=== PATIENT | female | born 1960 | race Caucasian/White ===

== ENCOUNTER 2017-11-05 06:55 | Emergency (ER) | payer OTHER ==
[~2017-11-05] VITALS: Ht 157.5 cm; Wt 64.6 kg
[~2017-11-05 06:55] MED LIST: COM10T PO; GABA-530 PO; IBUP-812 PO; LEVO150T62 PO; VALA10002 PO; ZOF4T PO
[2017-11-05 06:59] VITALS: BP 116/64
[2017-11-05] MEDS ORDERED: ketorolac trometh inj. 60 MG/2 ML VIAL IM ONE (07:10)
[2017-11-05] MEDS ORDERED: ketorolac tromethamine 15mg/ml inj. IM ONE (07:10)
== END 2017-11-05 07:28 | disposition home or self-care (01) ==
LOC: ER 06:56
DX: M54.5 Low back pain (principal); E03.9 Hypothyroidism, unspecified; G89.29 Other chronic pain; Z91.030 Bee allergy status; Z88.5 Allergy status to narcotic agent; Z79.899 Other long term (current) drug therapy
CPT/HCPCS: 96372; 99283; J1885

== ENCOUNTER 2018-02-21 07:57 | Outpatient (CLI) | payer OTHER ==
[~2018-02-21 07:57] MED LIST changes: +CYCL-1 PO
[2018-02-21 08:23] LABS: BASOPHILS % (AUTO) 0.6 % (0-1); EOSINOPHILS # (AUTO) 0.2 X10'3 (0-0.9); EOSINOPHILS % (AUTO) 2.2 % (0-6); HEMATOCRIT 41.1 % (35.0-45.0); HEMOGLOBIN 14.2 g/dl (12.0-16.0); LYMPHOCYTES # (AUTO) 3.2 X10'3 (1.1-4.8); LYMPHOCYTES % (AUTO) 37.7 % (21-51); MEAN CORPUSCULAR HEMOGLOBIN 31.4 PG (27.0-31.0); MEAN CORPUSCULAR HGB CONC 34.5 % (33.0-36.5); MEAN CORPUSCULAR VOLUME 90.9 FL (78-98); MONOCYTES # (AUTO) 0.4 X10'3 (0-0.9); MONOCYTES % (AUTO) 4.5 % (2-12); NEUTROPHILS # (AUTO) 4.6 X10'3 (1.8-7.7); PLATELET COUNT 301 X10'3 (140-440); RED BLOOD COUNT 4.52 X10'6 (4.20-5.60); RED CELL DISTRIBUTION WIDTH 13.6 % (11.5-14.5); WHITE BLOOD COUNT 8.4 X10'3 (4.5-11.0)
[2018-02-21 08:48] LABS: ALANINE AMINOTRANSFERASE 25 U/L (12-78); ALBUMIN 3.8 G/DL (3.4-5.0); ALKALINE PHOSPHATASE 79 IU/L (46-116); ANION GAP 6 (8-16); ASPARTATE AMINO TRANSFERASE 18 U/L (10-37); BILIRUBIN,TOTAL 0.4 MG/DL (0.1-1.0); BLOOD UREA NITROGEN 6 MG/DL (7-18); BUN/CREATININE RATIO 5.8 (6.6-38.0); CALCIUM 9.1 MG/DL (8.5-10.1); CHLORIDE 104 MMOL/L (99-107); CHOLESTEROL 178 MG/DL (0-200); CREATININE 1.04 MG/DL (0.40-0.90); GLUCOSE 112 MG/DL (70-104); HDL CHOLESTEROL 45 MG/DL (35-60); LDL CHOLESTEROL 118 MG/DL (50-100); POTASSIUM 4.4 MMOL/L (3.5-5.1); SODIUM 138 MMOL/L (135-145); TOTAL CARBON DIOXIDE 27.7 MMOL/L (24-32); TOTAL PROTEIN 7.7 G/DL (6.4-8.2); TRIGLYCERIDES 103 MG/DL (20-135); eGFR 55 ML/MIN
[2018-02-22 11:50] LABS: ANTITHYROGLOBULIN AB 1135.5 IU/mL (0.0-0.9)
[2018-02-23 05:20] LABS: VITAMIN D, 25-HYDROXY 31.9 ng/mL (30.0-100.0)
== END 2018-02-21 23:59 | disposition home or self-care (01) ==
LOC: LAB 07:57
PROVIDERS: ATTEND Family Medicine
DX: E03.9 Hypothyroidism, unspecified (principal); K21.9 Gastro-esophageal reflux disease without esophagitis; F17.200 Nicotine dependence, unspecified, uncomplicated; R49.0 Dysphonia; M19.90 Unspecified osteoarthritis, unspecified site; R53.83 Other fatigue; E55.9 Vitamin D deficiency, unspecified; E78.5 Hyperlipidemia, unspecified; M54.9 Dorsalgia, unspecified; Z98.1 Arthrodesis status
CPT/HCPCS: 36415; 80053; 80061; 82306; 84439; 84443; 85025; 85651

== ENCOUNTER 2018-05-03 20:53 | Emergency (ER) | payer OTHER ==
[~2018-05-03] VITALS: Ht 157.5 cm; Wt 94.3 kg
[2018-05-03] MEDS ORDERED: ipratropium/albuterol 3ml nebule NEB STA (22:36)
[2018-05-03] MEDS ORDERED: dexamethasone 4mg tablet PO STA (22:36)
[2018-05-03] MEDS ORDERED: AZIT-63 PO (23:07)
[2018-05-03] MEDS ORDERED: ALBU18HF2 INH (23:07)
[2018-05-03 23:20] VITALS: BP 140/70
== END 2018-05-03 23:22 | disposition home or self-care (01) ==
LOC: ER 20:54
DX: J22 Unspecified acute lower respiratory infection (principal); E03.9 Hypothyroidism, unspecified; G89.29 Other chronic pain; Z98.890 Other specified postprocedural states; Z91.030 Bee allergy status; Z79.899 Other long term (current) drug therapy
CPT/HCPCS: 93005; 94640; 94760; 99283; J8540

== ENCOUNTER 2018-12-26 16:24 | Emergency (ER) | payer OTHER ==
[~2018-12-26] VITALS: Ht 157.5 cm; Wt 68.2 kg
[~2018-12-26 16:24] MED LIST changes: +ALBU18HF2 INH
[2018-12-26 16:26] VITALS: BP 160/83
[2018-12-26] MEDS ORDERED: HYDROcodone/acetaminophen 5mg/325mg tablet PO ONE (17:25)
[2018-12-26] MEDS ORDERED: ketorolac trometh inj. 60 MG/2 ML VIAL IM ONE (17:35)
== END 2018-12-26 18:10 | disposition home or self-care (01) ==
LOC: ER 16:24
DX: S80.01XA Contusion of right knee, initial encounter (principal); R07.81 Pleurodynia; E03.9 Hypothyroidism, unspecified; G89.29 Other chronic pain; Z91.030 Bee allergy status; Z88.5 Allergy status to narcotic agent; Z79.899 Other long term (current) drug therapy; Z98.890 Other specified postprocedural states; W01.0XXA Fall on same level from slipping, tripping and stumbling without subsequent striking against object, initial encounter; Y93.01 Activity, walking, marching and hiking; Y92.89 Other specified places as the place of occurrence of the external cause; Y99.8 Other external cause status
CPT/HCPCS: 71101; 96372; 99283; J1885

== ENCOUNTER 2019-03-23 18:34 | Emergency (ER) | payer OTHER ==
[~2019-03-23] VITALS: Ht 157.5 cm; Wt 67.3 kg
[2019-03-23] MEDS ORDERED: ibuprofen tablet 400 MG TABLET PO ONE (19:30)
[2019-03-23 19:56] VITALS: BP 137/110
== END 2019-03-23 20:02 | disposition home or self-care (01) ==
LOC: ER 18:34
DX: S93.491A Sprain of other ligament of right ankle, initial encounter (principal); E03.9 Hypothyroidism, unspecified; G89.29 Other chronic pain; Z98.890 Other specified postprocedural states; Z88.5 Allergy status to narcotic agent; Z91.030 Bee allergy status; Z79.899 Other long term (current) drug therapy; X50.1XXA Overexertion from prolonged static or awkward postures, initial encounter; Y93.89 Activity, other specified; Y92.89 Other specified places as the place of occurrence of the external cause; Y99.8 Other external cause status
CPT/HCPCS: 73630; 99284

== ENCOUNTER 2019-05-29 12:14 | Emergency (ER) | payer OTHER ==
[~2019-05-29] VITALS: Ht 160 cm; Wt 64.0 kg
[2019-05-29 12:16] VITALS: BP 126/93
[2019-05-29] MEDS ORDERED: ibuprofen 200mg tablet PO ONE (13:30)
== END 2019-05-29 13:50 | disposition home or self-care (01) ==
LOC: ER 12:15
DX: S60.222A Contusion of left hand, initial encounter (principal); E03.9 Hypothyroidism, unspecified; G89.29 Other chronic pain; F17.200 Nicotine dependence, unspecified, uncomplicated; Z91.030 Bee allergy status; Z88.5 Allergy status to narcotic agent; Z79.899 Other long term (current) drug therapy; Z98.890 Other specified postprocedural states; W22.09XA Striking against other stationary object, initial encounter; Y93.01 Activity, walking, marching and hiking; Y92.89 Other specified places as the place of occurrence of the external cause; Y99.8 Other external cause status
CPT/HCPCS: 73130; 99283

== ENCOUNTER 2020-03-22 07:44 | Outpatient (CLI) | payer BC ==
[2020-03-22 16:41] LABS: BASOPHILS # (AUTO) 0.1 X10'3 (0-0.2); BASOPHILS % (AUTO) 1.3 % (0-1); EOSINOPHILS # (AUTO) 0.3 X10'3 (0-0.9); EOSINOPHILS % (AUTO) 4.2 % (0-6); HEMATOCRIT 38.5 % (35.0-45.0); HEMOGLOBIN 12.9 g/dl (12.0-16.0); LYMPHOCYTES # (AUTO) 3.2 X10'3 (1.1-4.8); LYMPHOCYTES % (AUTO) 44.9 % (21-51); MEAN CORPUSCULAR HEMOGLOBIN 30.6 PG (27.0-31.0); MEAN CORPUSCULAR HGB CONC 33.5 g/dL (33.0-36.5); MEAN CORPUSCULAR VOLUME 91.4 FL (78-98); MONOCYTES # (AUTO) 0.5 X10'3 (0-0.9); MONOCYTES % (AUTO) 7.2 % (2-12); NEUTROPHILS % (AUTO) 42.4 % (42-75); PLATELET COUNT 352 X10'3 (140-440); RED BLOOD COUNT 4.21 X10'6 (4.20-5.60)
[2020-03-22 17:07] LABS: HEMOGLOBIN A1C 5.6 % (4.5-6.2)
[2020-03-22 17:08] LABS: ANION GAP 9 (8-16); CHLORIDE 103 MMOL/L (99-107); GLUCOSE 92 MG/DL (70-104); POTASSIUM 3.6 MMOL/L (3.5-5.1); SODIUM 138 MMOL/L (135-145); TOTAL CARBON DIOXIDE 26.3 MMOL/L (24-32)
[2020-03-22 17:09] LABS: ALANINE AMINOTRANSFERASE 14 U/L (12-78); ALBUMIN 3.6 G/DL (3.4-5.0); ALBUMIN/GLOBULIN RATIO 0.8 (1.1-1.5); ALKALINE PHOSPHATASE 67 IU/L (46-116); ASPARTATE AMINO TRANSFERASE 12 U/L (10-37); BILIRUBIN,TOTAL 0.2 MG/DL (0.1-1.0); BLOOD UREA NITROGEN 17 MG/DL (7-18); CHOL/HDL RATIO 5.4 (0.00-4.99); CHOLESTEROL 157 MG/DL (0-200); CREATININE 0.85 MG/DL (0.40-0.90); HDL CHOLESTEROL 29 MG/DL (35-60); LDL CHOLESTEROL 99 MG/DL (50-100); PHOSPHORUS 3.4 MG/DL (2.3-4.5); TOTAL PROTEIN 7.9 G/DL (6.4-8.2); TRIGLYCERIDES 191 MG/DL (20-135); eGFR 69 ML/MIN
[2020-03-22 17:15] LABS: C-REACTIVE PROTEIN < 0.05 MG/DL (0.0-0.5)
[2020-03-24 16:06] LABS: MICROALB/CRT, RATIO <4 mg/g creat (0-29)
== END 2020-03-22 23:59 | disposition home or self-care (01) ==
LOC: 64 CT 07:44
PROVIDERS: ATTEND Family Medicine
DX: Z00.00 Encounter for general adult medical examination without abnormal findings (principal); R91.1 Solitary pulmonary nodule; J84.10 Pulmonary fibrosis, unspecified; J43.2 Centrilobular emphysema; J43.8 Other emphysema; F17.200 Nicotine dependence, unspecified, uncomplicated
CPT/HCPCS: 36415; 71250; 80053; 80061; 82043; 82306; 82330; 82570; 82607; 82746; 83036; 83970; 84100; 84439; 84443; 85025; 85651; 86140

== ENCOUNTER 2020-05-25 07:01 | Day surgery (SDC) | payer BC ==
[~2020-05-25] VITALS: Ht 157.5 cm; Wt 67.3 kg
[2020-05-25 07:08] VITALS: BP 123/77
[2020-05-25] MEDS ORDERED: MIDAZolam 5mg/5ml vial ONE (07:11)
[2020-05-25] MEDS ORDERED: fentaNYL/PF 50MCG/1 ML 2ML syringe ONE (07:11)
[2020-05-25 09:25] VITALS: BP 112/69
[2020-05-25 09:35] VITALS: BP 115/68
[2020-05-25 09:45] VITALS: BP 118/68
[2020-05-25 09:55] VITALS: BP 136/70
== END 2020-05-25 10:05 | disposition home or self-care (01) ==
LOC: GI LAB 07:01
PROVIDERS: ATTEND Internal Medicine Gastroenterology
DX: Z12.11 Encounter for screening for malignant neoplasm of colon (principal); D12.3 Benign neoplasm of transverse colon; K63.5 Polyp of colon; I34.1 Nonrheumatic mitral (valve) prolapse; F17.210 Nicotine dependence, cigarettes, uncomplicated; Z79.899 Other long term (current) drug therapy; Z80.0 Family history of malignant neoplasm of digestive organs
CPT/HCPCS: 45385; 99152; 99153; C1773; J2250; J3010; J7040; A4620

== ENCOUNTER 2021-08-10 14:37 | Outpatient (CLI) | payer BC ==
[~2021-08-10 14:37] MED LIST changes: -ALBU18HF2 INH; -COM10T PO; -CYCL-1 PO; -GABA-530 PO; -IBUP-812 PO; -VALA10002 PO; -ZOF4T PO
== END 2021-08-10 23:59 | disposition home or self-care (01) ==
LOC: RAD 14:37
PROVIDERS: ATTEND Physician Assistant
DX: M79.671 Pain in right foot (principal); M25.871 Other specified joint disorders, right ankle and foot
CPT/HCPCS: 73630

== ENCOUNTER 2022-03-21 08:11 | Emergency (ER) | payer BC ==
[~2022-03-21] VITALS: Ht 154.9 cm; Wt 69.1 kg
[2022-03-21 08:15] VITALS: BP 140/68
[2022-03-21] MEDS: ketorolac trometh. 30mg/ml inj. IM ONE (08:59)
== END 2022-03-21 09:06 | disposition home or self-care (01) ==
LOC: ER 08:11 → EEVIPCON 08:11 → ER 09:06
DX: M54.50 Low back pain, unspecified (principal); G89.29 Other chronic pain; E03.9 Hypothyroidism, unspecified; Z98.890 Other specified postprocedural states; Z91.030 Bee allergy status; Z88.5 Allergy status to narcotic agent; Z79.899 Other long term (current) drug therapy
CPT/HCPCS: 96372; 99284; J1885

== ENCOUNTER → 2023-08-31 | Outpatient (CLI) | payer BC | END | disposition home or self-care (01) | LOC: LAB 13:03 | PROVIDERS: ATTEND Family Medicine | DX: M51.37 Other intervertebral disc degeneration, lumbosacral region (principal); M51.34 Other intervertebral disc degeneration, thoracic region; M43.16 Spondylolisthesis, lumbar region; M85.88 Other specified disorders of bone density and structure, other site; M25.551 Pain in right hip | CPT/HCPCS: 72074; 72110; 73521 ==

== ENCOUNTER 2023-12-07 08:36 | Emergency (ER) | payer BC ==
[~2023-12-07] VITALS: Ht 157.5 cm; Wt 68.8 kg
[2023-12-07 08:37] VITALS: TEMP 98
[2023-12-07 09:07] VITALS: BP 135/68; PULSE 75; RESP 18; O2SAT 98
[2023-12-07] MEDS ORDERED: CefTRIAXone 1000mg IM Kit (w/lidocaine diluent) IM ONE (09:35)
[2023-12-07] MEDS ORDERED: CEFD300C3 PO (09:38)
== END 2023-12-07 10:00 | disposition home or self-care (01) ==
LOC: ER 08:36
DX: J18.9 Pneumonia, unspecified organism (principal); E03.9 Hypothyroidism, unspecified; Z98.890 Other specified postprocedural states; Z88.8 Allergy status to other drugs, medicaments and biological substances; Z79.899 Other long term (current) drug therapy
CPT/HCPCS: 71045; 99283

== ENCOUNTER 2024-06-10 10:52 | Inpatient (IN) | payer BC ==
[2024-06-10] VITALS (9 sets, daily range): PULSE 80–110; RESP 16–24; O2SAT 93–100
[~2024-06-10] VITALS: Ht 154.9 cm; Wt 68.0 kg
[~2024-06-10 10:52] MED LIST changes: +methylPREDNISolone sod succ 125mg/2ml vial IV ONE; +methylPREDNISolone sod succ/PF 40mg inj. IV ONE
[2024-06-10] MEDS: ipratropium/albuterol 3ml nebule NEB ONE (11:21)
[2024-06-10] MEDS: albuterol 2.5 MG/3 ML nebule NEB ONE ×2 (11:29→15:22)
[2024-06-10 11:55] LABS: BASOPHILS % (AUTO) 0.6 % (0-1); EOSINOPHILS # (AUTO) 0.2 X10'3 (0-0.9); EOSINOPHILS % (AUTO) 3.4 % (0-6); HEMATOCRIT 42.8 % (35.0-45.0); HEMOGLOBIN 14.3 g/dl (12.0-16.0); LYMPHOCYTES # (AUTO) 2.2 X10'3 (1.1-4.8); LYMPHOCYTES % (AUTO) 30.3 % (21-51); MEAN CORPUSCULAR HEMOGLOBIN 30.2 PG (27.0-31.0); MEAN CORPUSCULAR HGB CONC 33.4 g/dL (33.0-36.5); MEAN CORPUSCULAR VOLUME 90.2 FL (78-98); MEAN PLATELET VOLUME 7.2 FL (7.4-10.4); MONOCYTES # (AUTO) 0.6 X10'3 (0-0.9); MONOCYTES % (AUTO) 7.9 % (2-12); NEUTROPHILS # (AUTO) 4.2 X10'3 (1.8-7.7); NEUTROPHILS % (AUTO) 57.8 % (42-75); PLATELET COUNT 301 X10'3 (140-440); RED BLOOD COUNT 4.74 X10'6 (4.20-5.60); RED CELL DISTRIBUTION WIDTH 13.2 % (11.5-14.5); WHITE BLOOD COUNT 7.2 X10'3 (4.5-11.0)
[2024-06-10 12:01] LABS: ALANINE AMINOTRANSFERASE 67 U/L (12-78); ALBUMIN 3.7 G/DL (3.4-5.0); ALBUMIN/GLOBULIN RATIO 0.9 (1.1-1.5); ALKALINE PHOSPHATASE 115 IU/L (46-116); ANION GAP 7 (8-16); ASPARTATE AMINO TRANSFERASE 36 U/L (10-37); BILIRUBIN,TOTAL 0.3 MG/DL (0.1-1.0); BLOOD UREA NITROGEN 6 MG/DL (7-18); BUN/CREATININE RATIO 8.1 (10.0-20.0); CALCIUM 9.2 MG/DL (8.5-10.1); CHLORIDE 102 MMOL/L (99-107); CREATININE 0.74 MG/DL (0.40-0.90); GLUCOSE 93 MG/DL (70-104); POTASSIUM 3.8 MMOL/L (3.5-5.1); SODIUM 136 MMOL/L (135-145); TOTAL CARBON DIOXIDE 27.1 MMOL/L (24-32); TOTAL PROTEIN 7.8 G/DL (6.4-8.2); eCRCL 60 ML/MIN; eGFR 80 ML/MIN
[2024-06-10] MEDS: methylPREDNISolone sod succ/PF 40mg inj. IV SCH (14:12)
[2024-06-10] MEDS: acetaminophen 325mg tablet PO ONE (14:22)
[2024-06-10] MEDS: albuterol 2.5 MG/3 ML nebule CONTNEB PRN (16:29)
[2024-06-10] MEDS ORDERED: potassium Cl 20 mEq SR tablet PO PRN ×2 (17:15)
[2024-06-10] MEDS ORDERED: magnesium Cl slow-release 64mg tablet PO PRN (17:15)
[2024-06-10] MEDS ORDERED: potassium Cl 40MEQ/1/2NS 520ml 520 ML IV PRN (17:15)
[2024-06-10] MEDS ORDERED: magnesium sulf-water 2g/50mL 50 ML IV PRN (17:15)
[2024-06-10] MEDS ORDERED: ondansetron/PF 4mg/2ml inj IV PRN (17:15)
[2024-06-10] MEDS ORDERED: magnesium sulf-water 4G/100mL 100 ML IV PRN (17:15)
[2024-06-10] MEDS: CefTRIAXone/D5W-Rocephin 1gm 50 ML IV ONE (17:27)
[2024-06-10] MEDS: nicotine 14mg patch - 24hr TD SCH (18:42)
[2024-06-10] MEDS: azithromycin/NS 500mg/250ml 250 ML IV ONE (18:42)
[2024-06-10] MEDS: albuterol 2.5 MG/3 ML nebule NEB SCH (19:09)
[2024-06-10] MEDS ORDERED: methylPREDNISolone sod succ 125mg/2ml vial IV SCH (20:00)
[2024-06-10] MEDS: heparin, porcine 5000 units/ml vial SQ SCH (21:04)
[2024-06-10] MEDS: acetaminophen 325mg tablet PO PRN (21:06)
[2024-06-10] MEDS: normal saline 1000ml 1,000 ML IV ONE (21:07)
[2024-06-10] MEDS: normal saline 1000ml 1,000 ML IV SCH (21:24)
[2024-06-11] VITALS (22 sets, daily range): BP systolic 116–144; BP diastolic 64–75; PULSE 90–141; RESP 14–22; TEMP 97.7–97.8; O2SAT 90–95
[2024-06-11] MEDS: methylPREDNISolone sod succ/PF 40mg inj. IV SCH (00:10)
[2024-06-11] MEDS: Melatonin 3mg tablet PO SCH (03:23)
[2024-06-11] MEDS: CefTRIAXone 2gm/D5W 50ml BAG 50 ML IV SCH (07:52)
[2024-06-11 08:44] LABS: BASOPHILS % (AUTO) 0.2 % (0-1); EOSINOPHILS % (AUTO) 0 % (0-6); HEMATOCRIT 38.4 % (35.0-45.0); HEMOGLOBIN 12.8 g/dl (12.0-16.0); LYMPHOCYTES % (AUTO) 9.2 % (21-51); MEAN CORPUSCULAR HEMOGLOBIN 30.1 PG (27.0-31.0); MEAN CORPUSCULAR HGB CONC 33.4 g/dL (33.0-36.5); MEAN CORPUSCULAR VOLUME 90.2 FL (78-98); MEAN PLATELET VOLUME 7.5 FL (7.4-10.4); MONOCYTES # (AUTO) 0.3 X10'3 (0-0.9); MONOCYTES % (AUTO) 2.8 % (2-12); NEUTROPHILS % (AUTO) 87.8 % (42-75); PLATELET COUNT 314 X10'3 (140-440); RED BLOOD COUNT 4.25 X10'6 (4.20-5.60); RED CELL DISTRIBUTION WIDTH 13.2 % (11.5-14.5); WHITE BLOOD COUNT 10.3 X10'3 (4.5-11.0)
[2024-06-11 09:02] LABS: ALANINE AMINOTRANSFERASE 58 U/L (12-78); ALBUMIN 3.3 G/DL (3.4-5.0); ALBUMIN/GLOBULIN RATIO 0.8 (1.1-1.5); ALKALINE PHOSPHATASE 101 IU/L (46-116); ANION GAP 9 (8-16); ASPARTATE AMINO TRANSFERASE 32 U/L (10-37); BILIRUBIN,TOTAL 0.2 MG/DL (0.1-1.0); BLOOD UREA NITROGEN 8 MG/DL (7-18); BUN/CREATININE RATIO 10.8 (10.0-20.0); CHLORIDE 105 MMOL/L (99-107); CREATININE 0.74 MG/DL (0.40-0.90); GLUCOSE 127 MG/DL (70-104); POTASSIUM 3.5 MMOL/L (3.5-5.1); SODIUM 139 MMOL/L (135-145); TOTAL CARBON DIOXIDE 25.3 MMOL/L (24-32); TOTAL PROTEIN 7.2 G/DL (6.4-8.2); eCRCL 60 ML/MIN; eGFR 80 ML/MIN
[2024-06-11] MEDS: azithromycin 250mg tablet PO SCH (09:06)
[2024-06-11] MEDS: acetaminophen 325mg tablet PO PRN (13:11)
[2024-06-11] MEDS ORDERED: iohexol 300mg/ml 100ml inj. ONE (16:03)
[2024-06-11] MEDS: levoTHYROXINE 75mcg tablet PO SCH (16:29)
[2024-06-11] MEDS: ipratropium 0.5 MG/2.5ML nebule IH SCH (16:32)
[2024-06-11] MEDS: levoTHYROXINE 75mcg tablet PO ONE (16:56)
[2024-06-11] MEDS: levalbuterol 0.63mg/3ml nebule IH SCH (19:31)
[2024-06-11] MEDS: budesonide 0.5mg/2ml UD nebule IH SCH (19:32)
[2024-06-11] MEDS: nicotine 14mg patch - 24hr TD ONE (19:53)
[2024-06-11] MEDS: ibuprofen 200mg tablet PO ONE (23:32)
[2024-06-11] MEDS: guaiFENesin/DM 10ml UD oral syrup PO PRN (23:33)
[2024-06-12] VITALS (18 sets, daily range): BP systolic 129–141; BP diastolic 65–78; PULSE 83–107; RESP 15–22; TEMP 97–97.9; O2SAT 91–98
[2024-06-12 06:56] LABS: BASOPHILS % (AUTO) 0.2 % (0-1); EOSINOPHILS % (AUTO) 0 % (0-6); HEMATOCRIT 37.7 % (35.0-45.0); HEMOGLOBIN 12.5 g/dl (12.0-16.0); LYMPHOCYTES # (AUTO) 1.6 X10'3 (1.1-4.8); LYMPHOCYTES % (AUTO) 8.7 % (21-51); MEAN CORPUSCULAR HGB CONC 33.3 g/dL (33.0-36.5); MEAN CORPUSCULAR VOLUME 90.1 FL (78-98); MEAN PLATELET VOLUME 7.7 FL (7.4-10.4); MONOCYTES # (AUTO) 0.6 X10'3 (0-0.9); NEUTROPHILS % (AUTO) 88.1 % (42-75); PLATELET COUNT 334 X10'3 (140-440); RED BLOOD COUNT 4.18 X10'6 (4.20-5.60); RED CELL DISTRIBUTION WIDTH 13.4 % (11.5-14.5); WHITE BLOOD COUNT 18.2 X10'3 (4.5-11.0)
[2024-06-12 07:30] LABS: ALANINE AMINOTRANSFERASE 52 U/L (12-78); ALBUMIN 3.2 G/DL (3.4-5.0); ALBUMIN/GLOBULIN RATIO 0.9 (1.1-1.5); ALKALINE PHOSPHATASE 97 IU/L (46-116); ANION GAP 6 (8-16); ASPARTATE AMINO TRANSFERASE 29 U/L (10-37); BILIRUBIN,TOTAL 0.2 MG/DL (0.1-1.0); BLOOD UREA NITROGEN 12 MG/DL (7-18); BUN/CREATININE RATIO 15.4 (10.0-20.0); CALCIUM 8.7 MG/DL (8.5-10.1); CHLORIDE 102 MMOL/L (99-107); CREATININE 0.78 MG/DL (0.40-0.90); GLUCOSE 128 MG/DL (70-104); POTASSIUM 4.1 MMOL/L (3.5-5.1); SODIUM 133 MMOL/L (135-145); TOTAL CARBON DIOXIDE 25.1 MMOL/L (24-32); TOTAL PROTEIN 6.7 G/DL (6.4-8.2); eCRCL 57 ML/MIN; eGFR 75 ML/MIN
[2024-06-12] MEDS: atenolol 25mg tablet PO ONE (12:31)
[2024-06-12] MEDS: losartan 25mg tablet PO SCH (17:42)
[2024-06-12] MEDS: methylPREDNISolone sod succ/PF 40mg inj. IV SCH (20:23)
[2024-06-13] VITALS (17 sets, daily range): BP systolic 117–140; BP diastolic 53–89; PULSE 79–105; RESP 13–18; TEMP 97.5–98.6; O2SAT 91–96
[2024-06-13 08:05] LABS: BASOPHILS % (AUTO) 0.1 % (0-1); EOSINOPHILS % (AUTO) 0 % (0-6); HEMATOCRIT 38.8 % (35.0-45.0); HEMOGLOBIN 12.9 g/dl (12.0-16.0); LYMPHOCYTES # (AUTO) 2.6 X10'3 (1.1-4.8); LYMPHOCYTES % (AUTO) 18.4 % (21-51); MEAN CORPUSCULAR HEMOGLOBIN 29.8 PG (27.0-31.0); MEAN CORPUSCULAR HGB CONC 33.2 g/dL (33.0-36.5); MEAN CORPUSCULAR VOLUME 89.9 FL (78-98); MEAN PLATELET VOLUME 7.2 FL (7.4-10.4); MONOCYTES # (AUTO) 0.6 X10'3 (0-0.9); MONOCYTES % (AUTO) 4.6 % (2-12); NEUTROPHILS # (AUTO) 10.7 X10'3 (1.8-7.7); NEUTROPHILS % (AUTO) 76.9 % (42-75); PLATELET COUNT 337 X10'3 (140-440); RED BLOOD COUNT 4.31 X10'6 (4.20-5.60); RED CELL DISTRIBUTION WIDTH 13.1 % (11.5-14.5)
[2024-06-13] MEDS ORDERED: albuterol 2.5 MG/3 ML nebule NEB PRN (08:10)
[2024-06-13 08:28] LABS: ABG BASE EXCESS 0.3 mmol/L (-2.0-3.0); ABG HCO3 24.5 mmol/L (21.0-28.0); ABG OXYGEN SATURATION 93.6 % (94.0-98.0); ABG PCO2 (T) 38.3 mmHg (32.0-45.0); ABG PH (T) 7.424 (7.350-7.450); ABG PO2 (T) 64.4 mmHg (83.0-108.0); ALLEN'S TEST POSITIVE; FCOHb 0.6 % (0.5-1.5); FHHb 6.3 % (0.0-5.0); FLOW 2 L/min; FMetHb 0.3 % (0.0-1.5); FO2Hb 92.8 % (94.0-98.0); MODE NASAL CANNULA; PATIENT TEMPERATURE 36.8; TOTAL HEMOGLOBIN 14.3 G/dl (12.0-16.0)
[2024-06-13 08:47] LABS: ALANINE AMINOTRANSFERASE 43 U/L (12-78); ALBUMIN 3.2 G/DL (3.4-5.0); ALBUMIN/GLOBULIN RATIO 0.9 (1.1-1.5); ALKALINE PHOSPHATASE 86 IU/L (46-116); ANION GAP 5 (8-16); ASPARTATE AMINO TRANSFERASE 24 U/L (10-37); BILIRUBIN,TOTAL 0.2 MG/DL (0.1-1.0); BLOOD UREA NITROGEN 17 MG/DL (7-18); BUN/CREATININE RATIO 22.7 (10.0-20.0); CALCIUM 8.9 MG/DL (8.5-10.1); CHLORIDE 102 MMOL/L (99-107); CREATININE 0.75 MG/DL (0.40-0.90); GLUCOSE 99 MG/DL (70-104); POTASSIUM 4.2 MMOL/L (3.5-5.1); SODIUM 135 MMOL/L (135-145); THYROID STIMULATING HORMONE 0.17 ulU/ml (0.34-4.50); TOTAL CARBON DIOXIDE 28.1 MMOL/L (24-32); TOTAL PROTEIN 6.9 G/DL (6.4-8.2); eCRCL 59 ML/MIN; eGFR 79 ML/MIN
[2024-06-13] MEDS: pneumococcal 23-VAL P-sac vacc 25 mcg/0.5ml vial IMVAC ONE (09:25)
[2024-06-13 11:28] LABS: CHOL/HDL RATIO 3.7 (0.00-4.99); CHOLESTEROL 190 MG/DL (0-200); HDL CHOLESTEROL 52 MG/DL (35-60); LDL CHOLESTEROL 113 MG/DL (50-100); TRIGLYCERIDES 139 MG/DL (20-135)
[2024-06-13] MEDS: albuterol 2.5 MG/3 ML nebule NEB SCH (11:31)
[2024-06-13] MEDS: ipratropium/albuterol 3ml nebule NEB SCH (23:11)
[2024-06-14] VITALS (9 sets, daily range): BP systolic 119–131; BP diastolic 60; PULSE 92–116; RESP 16–21; TEMP 97.8; O2SAT 95–96
[2024-06-14 07:59] LABS: BASOPHILS % (AUTO) 0.1 % (0-1); EOSINOPHILS % (AUTO) 0 % (0-6); HEMATOCRIT 40.9 % (35.0-45.0); HEMOGLOBIN 13.5 g/dl (12.0-16.0); LYMPHOCYTES # (AUTO) 3.1 X10'3 (1.1-4.8); LYMPHOCYTES % (AUTO) 20.3 % (21-51); MEAN CORPUSCULAR HEMOGLOBIN 29.9 PG (27.0-31.0); MEAN CORPUSCULAR HGB CONC 33.1 g/dL (33.0-36.5); MEAN CORPUSCULAR VOLUME 90.5 FL (78-98); MEAN PLATELET VOLUME 7.1 FL (7.4-10.4); MONOCYTES % (AUTO) 6.4 % (2-12); NEUTROPHILS # (AUTO) 11.3 X10'3 (1.8-7.7); NEUTROPHILS % (AUTO) 73.2 % (42-75); PLATELET COUNT 401 X10'3 (140-440); RED BLOOD COUNT 4.52 X10'6 (4.20-5.60); RED CELL DISTRIBUTION WIDTH 13.2 % (11.5-14.5); WHITE BLOOD COUNT 15.5 X10'3 (4.5-11.0)
[2024-06-14 08:18] LABS: ALANINE AMINOTRANSFERASE 65 U/L (12-78); ALBUMIN 3.5 G/DL (3.4-5.0); ALBUMIN/GLOBULIN RATIO 0.9 (1.1-1.5); ALKALINE PHOSPHATASE 88 IU/L (46-116); ANION GAP 9 (8-16); ASPARTATE AMINO TRANSFERASE 39 U/L (10-37); BILIRUBIN,TOTAL 0.1 MG/DL (0.1-1.0); BLOOD UREA NITROGEN 16 MG/DL (7-18); BUN/CREATININE RATIO 16.5 (10.0-20.0); CALCIUM 9.1 MG/DL (8.5-10.1); CHLORIDE 101 MMOL/L (99-107); CREATININE 0.97 MG/DL (0.40-0.90); GLUCOSE 114 MG/DL (70-104); POTASSIUM 4.2 MMOL/L (3.5-5.1); SODIUM 137 MMOL/L (135-145); TOTAL CARBON DIOXIDE 26.7 MMOL/L (24-32); TOTAL PROTEIN 7.4 G/DL (6.4-8.2); eCRCL 46 ML/MIN; eGFR 58 ML/MIN
[2024-06-14] MEDS: levoTHYROXINE 125mcg tablet PO SCH (08:43)
[2024-06-14] MEDS ORDERED: NICO-631 TD (09:25)
[2024-06-14] MEDS ORDERED: ADV50250 IH (09:26)
[2024-06-14] MEDS ORDERED: ALBU18HF2 IH (10:02)
[2024-06-14] MEDS ORDERED: ALBU2.5V7 NEB (10:02)
[2024-06-14] MEDS ORDERED: PRED20TA PO (10:02)
[2024-06-14] MEDS ORDERED: LACT1CAP26 PO (11:46)
[2024-06-14] MEDS ORDERED: CEFD300C3 PO (11:46)
[2024-06-14] MEDS ORDERED: LEVO125T8 PO (11:50)
== END 2024-06-14 16:58 | disposition home or self-care (01) | DRG 189 ==
LOC: ER 10:52 → ED HOLD 17:19 → PCU 3S 06-11 17:49
PROVIDERS: ADMIT Internal Medicine; ATTEND Internal Medicine
PROC: BW241ZZ Computerized Tomography (CT Scan) of Chest and Abdomen using Low Osmolar Contrast (ICD-10-PCS; principal; 2024-06-11)
DX: J96.01 Acute respiratory failure with hypoxia (principal); J44.1 Chronic obstructive pulmonary disease with (acute) exacerbation; Z20.822 Contact with and (suspected) exposure to COVID-19; M54.9 Dorsalgia, unspecified; G89.29 Other chronic pain; E03.9 Hypothyroidism, unspecified; F17.210 Nicotine dependence, cigarettes, uncomplicated; J43.9 Emphysema, unspecified; I10 Essential (primary) hypertension; Z98.1 Arthrodesis status; Z88.5 Allergy status to narcotic agent; Z91.030 Bee allergy status; Z80.7 Family history of other malignant neoplasms of lymphoid, hematopoietic and related tissues; Z80.1 Family history of malignant neoplasm of trachea, bronchus and lung
CPT/HCPCS: 36415; 36600; 71045; 71260; 80053; 80061; 82803; 83605; 84145; 84443; 85018; 85025; 85651; 87040; 87081; 87811; 90732; 93005; 94640; 94664; 94760; 96374; 97116; 97161; 97530; 99291; A4615; A7015; G0378; J0456; J0696; J1644; J2919; J7030; J7040; J7614; Q9967

== ENCOUNTER 2024-12-19 13:54 | Outpatient (CLI) | payer BC ==
[~2024-12-19] VITALS: Ht 157.5 cm; Wt 73.0 kg
[~2024-12-19 13:54] MED LIST changes: +ALBU18HF2 IH; +ALBU2.5V7 NEB; +CEFD300C3 PO; +LACT1CAP26 PO; +LEVO125T8 PO; +NICO-631 TD; -methylPREDNISolone sod succ 125mg/2ml vial IV ONE; -methylPREDNISolone sod succ/PF 40mg inj. IV ONE
[2024-12-19] MEDS: albuterol 2.5 MG/3 ML nebule NEB ONE (15:11)
[2024-12-19 15:13] VITALS: PULSE 64; RESP 16; O2SAT 64
[2024-12-19 15:26] VITALS: PULSE 68; RESP 16
--- NOTE | 2024-12-24 10:23 | PROCEDURE NOTE - Respiratory ---
Procedure Note-Respiratory Providers to Copies To 1: SANGITA KELLY MD Procedure Name: This is a complete pulmonary function study dated December 19, 2024. Spirometry measurements: The forced vital capacity is at the lower limit of normal. The FEV1 is clearly reduced. The FEV1 ratio is reduced as well. Several of the flow rate measurements show significant reduction. After inhaled bronchodilator was administered, there is no appreciable change in the flow volume loop. Lung volume measurements: The total lung capacity is normal. The functional residual capacity is normal. The residual volume is slightly elevated. Lung diffusion measurement: The DLCO measurement is in the lower range of normal. Airway resistance measurement: The airway resistance measurement is normal. Conclusion: This study is abnormal. There is evidence for obstructive ventilatory defect in the moderately severe category. This is consistent with the patient's diagnosis of smoking-related COPD. It is strongly recommended that the patient abstain from cigarette smoking. Bronchodilator therapy should be continued for this patient. We have a previous study for comparison dated July 04 2007. Over the past 18 years the patient has shown deterioration in the FEV1 measurement from 2.54 L down to 1.61 L. the forced vital capacity measurement has also shown deterioration. The DLCO measurement also shows some deterioration close pulmonary follow-up is recommended for this patient with COPD. SD BORGES MD December 24, 2024 10:23
== END 2024-12-19 23:59 | disposition home or self-care (01) ==
LOC: RT 13:54
PROVIDERS: ATTEND Internal Medicine Critical Care Medicine
DX: J44.9 Chronic obstructive pulmonary disease, unspecified (principal)
CPT/HCPCS: 94060; 94760; A6250

== ENCOUNTER 2025-01-04 13:27 | Emergency (ER) | payer BC ==
[~2025-01-04] VITALS: Ht 154.9 cm; Wt 73.2 kg
[2025-01-04 13:55] VITALS: BP 132/62; PULSE 77; RESP 18; O2SAT 98
--- NOTE | 2025-01-04 15:27 | Physician Documentation ---
History of Present Illness General Chief Complaint: Back Pain Stated Complaint: BACK PAIN Time Seen by MD: 14:18 Primary Medical Doctor: DR ELIAS Medication Reconciliation Allergies: Coded Allergies: bee venom protein (honey bee) (Verified Allergy, Severe, 03/23/19) codeine (Verified Allergy, Unknown, 03/23/19) Scheduled Albuterol Sulfate (Ventolin Hfa), 2 PUFFS IH 5XD Cefdinir (Cefdinir), 1 CAP PO Q12H Lactobacillus Rhamnosus (Culturelle), 1 CAP PO DAILY Levothyroxine Sodium (Levothyroxine Sodium), 125 MCG PO DAILY Levothyroxine Sodium* (Levoxyl*), 150 MCG PO DAILY, (Reported) Nicotine 14 MG Patch* (Habitrol 14 MG Patch*), 1 PATCH TD DAILY Scheduled PRN Albuterol Sulfate (Albuterol Sulfate), 1 VIAL NEB Q4HPRN PRN for wheezing Past Medical History Past Medical History: Hypothyroidism, Chronic Back Pain, Osteopenia Past Surgical History: orthopedic surgeries Other Past Surgical History: laminectomy, spinal fusion Other Past Family History: lymphoma and lung cancer Smoking: Cigarettes, Less than 1 pack/day Alcohol Use: None Drug Use: none Lives with: Spouse Lives In: Home Occupation: employed Physical Exam Physical Exam Vital Signs: Temperature: 97.6, Source: Temporal, Heart Rate: 77, Respiratory Rate: 18, BP: 132/62, Pulse Oximetry: 98, Weight: 73.200 Oxygen Flow Rate: 0 Progress Results/Orders Results/Orders Orders - CURT LLANES Diazepam Tablet (Valium Tablet) (01/04/25 15:25) Lidocaine 5% Patch (Lidoderm 5% Patch) (01/04/25 15:25) Prednisone Tablet (Prednisone Tablet) (01/04/25 15:25) Vital Signs 01/04/25 13:55 Temp 97.6 Pulse 77 Resp 18 B/P (MAP) 132/62 Pulse Ox 98 O2 Flow Rate 0 Departure Disposition: 01 HOME / SELF CARE / HOMELESS Impression: Primary Impression: Acute exacerbation of chronic low back pain Condition: Improved Discharge Instructions: Acute Back Pain, Adult Additional Instructions: Today in the emergency department you received 1st dose of prednisone that you r epeat each day for the next four days. Topical Lidoderm patch applied to be replaced every 12 hours and a one time dose of Valium. Please obtain prescriptions from the pharmacy and begin as directed. Return to the emergency department if symptoms worsen and/or make follow up appointment with the primary care physician. Thank you for choosing [facility]. Referrals: NO PRIMARY CARE PROVIDER (PCP) Prescriptions Prednisone* (Prednisone*) 20 Mg Tablet 3 TAB PO DAILY, #12 TAB Prov: CURT LLANES 01/04/25 Cyclobenzaprine* (Cyclobenzaprine*) 10 Mg Tablet 0.5 TAB PO Q8H for muscle spasms for 10 Days, #30 TAB 0 Refills Prov: CURT LLANES 01/04/25 Lidocaine (Lidoderm) 5 % Adh..patch 1 PATCH TD DAILY, #10 PATCH Apply 1 patch daily for 12 hours then off for 12 hours May sub 15 grams 4 pct lidocaine cream if patches are cost peohibitive Prov: CURT LLANES 01/04/25 Education Educated: Patient, Family Educated regarding: diagnosis, treatment, prognosis CURT LLANES Jan 04, 2025 15:27
[2025-01-04] MEDS ORDERED: PRED20TA PO (15:30)
[2025-01-04] MEDS ORDERED: LIDO700A32 TD (15:30)
[2025-01-04] MEDS ORDERED: CYCL-1 PO (15:30)
[2025-01-04] MEDS: predniSONE 20 mg tablet PO ONE (15:58)
[2025-01-04] MEDS: diazepam 5mg tablet PO ONE (15:58)
[2025-01-04] MEDS: LIDOcaine 5% patch TP ONE (15:58)
[2025-01-04 16:06] VITALS: TEMP 97.6
== END 2025-01-04 16:07 | disposition home or self-care (01) ==
LOC: ER 13:28
DX: G89.29 Other chronic pain (principal); M54.50 Low back pain, unspecified; E03.9 Hypothyroidism, unspecified; Z88.5 Allergy status to narcotic agent; Z91.030 Bee allergy status
CPT/HCPCS: 99284; J7512

== ENCOUNTER 2025-06-26 07:46 | Outpatient (CLI) | payer BC ==
[~2025-06-26 07:46] MED LIST changes: +CYCL-1 PO; +LIDO-52 TD
--- NOTE | 2025-06-26 15:38 | RADIOLOGY REPORT ---
EXAM: CT CT CHEST LOW DOSE HISTORY: PERSONAL HISTORY OF NICOTINE DEPENDENCE, lung cancer screening COMPARISON: CT CT CHEST on DOS: 06/11/24, CT CHEST on DOS: 03/22/20 TECHNIQUE: Noncontrast helical CT images of the chest were performed utilizing low dose lung cancer screening protocol. Sagittal and coronal reformatted images were obtained. This CT exam was performed using one or more of the following dose reduction techniques: Automated exposure control, adjustment of the mA and/or kV according to patient size, or use of iterative reconstruction technique. Radiation Dose: CT Dose: CTDI volume is 2.8 mGy. Dose-length product is 108.79 mGy*cm FINDINGS: There is a right upper lobe juxtapleural 4 mm noncalcified pulmonary nodule (image 33, series 4). There is peribronchial thickening. No consolidative infiltrates, pneumothorax, pleural effusions, or pulmonary edema. There is platelike atelectasis versus scarring in the right middle lobe and lingula. There is mild paraseptal emphysema of the upper lobes. No suspicious mediastinal or axillary adenopathy. The heart is not enlarged. There are coronary artery calcifications. No thoracic aortic aneurysm. There are chronic appearing compression fractures of T5, T6, and T12. IMPRESSION: 1. 4 mm juxtapleural right upper lobe noncalcified pulmonary nodule. 2. Emphysema and Reactive airways disease. 3. Coronary artery disease. 4. Multiple chronic appearing thoracic vertebral fractures as detailed above. Lung-RADS 2. Benign. Continue annual screening with LDCT in 12 months. Lung-RADS v2022.
== END 2025-06-26 23:59 | disposition home or self-care (01) ==
LOC: RAD 07:46
PROVIDERS: ATTEND Internal Medicine Critical Care Medicine
DX: Z12.2 Encounter for screening for malignant neoplasm of respiratory organs (principal); R91.1 Solitary pulmonary nodule; E03.9 Hypothyroidism, unspecified; J43.9 Emphysema, unspecified; I25.10 Atherosclerotic heart disease of native coronary artery without angina pectoris; Z87.891 Personal history of nicotine dependence
CPT/HCPCS: 36415; 71271; 84439; 84443

== ENCOUNTER 2025-07-20 09:17 | Emergency (ER) | payer BC ==
[~2025-07-20] VITALS: Ht 154.9 cm; Wt 70.0 kg
--- NOTE | 2025-07-20 09:25 | ELECTROCARDIOGRAPH REPORT ---
[facility] Test Date: 2025-07-20 Test Time: 09:24:41 Pat Name: SHELLY SAUL Department: EMERGENCY ROOM Room: Gender: F Four H Agent: DARIAN : 1960 Requested By: JAYLIN RODRIGUEZ Order Number: [id number] Reading MD: Measurements Intervals [place] Rate: 103 P: 82 NV: 142 QRS: 93 QRSD: 69 T: 27 QT: 490 QTc: 642 Interpretive Statements Sinus tachycardia Right axis deviation Borderline abnrm T, anterolateral leads Prolonged QT interval Please click the below link to view image of tracing.
[2025-07-20 09:50] LABS: MEAN PLATELET VOLUME 7.2 FL (7.4-10.4); RED CELL DISTRIBUTION WIDTH 13.3 % (11.5-14.5)
[2025-07-20 10:05] LABS: CREATININE 0.81 MG/DL (0.40-0.90); PRO BRAIN NATRIURETIC PEPTIDE 101 PG/ML (0-125); TOTAL CARBON DIOXIDE 25.0 MMOL/L (24-32); eCRCL 54 ML/MIN; eGFR 72 ML/MIN
--- NOTE | 2025-07-20 10:05 | RADIOLOGY REPORT ---
CHEST RADIOGRAPH INDICATION: CP TECHNIQUE: DI CHEST,SINGLE VIEW Comparison: None FINDINGS: The cardiac silhouette is unremarkable. The lungs demonstrate bibasilar airspace opacities. The pulmonary vasculature is unremarkable. There is no pleural effusion. There is no pneumothorax. Aortic atherosclerotic disease. IMPRESSION: Bibasilar airspace opacities, [id number].
--- NOTE | 2025-07-20 10:08 | Physician Documentation ---
History of Present Illness ~ Chief Complaint: Difficulty Breathing Stated Complaint: DIFF BREATHING Time Seen by MD: 09:41 Primary Medical Doctor: DR. HENDERSON Source: patient Mode of Arrival: POV Exam Limitations: no limitations HPI 64 year old female with COPD, hypothyroidism, came to the ER with chief c/o sob for 10 days. Patient stated almost a month ago, she was diagnosed with RSV, and was prescribed antibiotocs and prednisone for 5 days. Her symptoms were resolved, and she was feeling better. For the past 10 days, with worsening of fog, she experienced worsening of cough with increased sputum, and worsening sob, a/w orthopnea. denies fever, pedal edema. she is using inhalers q2h, but th e symtpoms were not getting better. she ran out of her nebulizer and is not using it at home Medication Reconciliation Allergies: Coded Allergies: bee venom protein (honey bee) (Verified Allergy, Severe, 03/23/19) codeine (Verified Allergy, Unknown, 03/23/19) Scheduled Albuterol Sulfate (Ventolin Hfa), 2 PUFFS IH 5XD Albuterol Sulfate Nebs* (Proventil Nebs*), 1 VIAL NEB Q6H Azithromycin (Azithromycin), 1 TAB PO UD Cefdinir (Cefdinir), 1 CAP PO Q12H Cyclobenzaprine* (Cyclobenzaprine*), 0.5 TAB PO Q8H Lactobacillus Rhamnosus (Culturelle), 1 CAP PO DAILY Levothyroxine Sodium (Levothyroxine Sodium), 125 MCG PO DAILY Levothyroxine Sodium* (Levoxyl*), 150 MCG PO DAILY, (Reported) Lidocaine (Lidoderm), 1 PATCH TD DAILY Nicotine 14 MG Patch* (Habitrol 14 MG Patch*), 1 PATCH TD DAILY Prednisone* (Prednisone*), 2 TAB PO DAILY Scheduled PRN Albuterol Sulfate (Albuterol Sulfate), 1 VIAL NEB Q4HPRN PRN for wheezing Past Medical History Past Medical History: COPD, Hypothyroidism, Chronic Back Pain, Osteopenia Past Surgical History: orthopedic surgeries Other Past Surgical History: laminectomy, spinal fusion Patient History: Patient reports no known family medical history. Other Past Family History: lymphoma and lung cancer Smoking Status: Current every day smoker Alcohol Use: None Drug Use: none Lives with: Spouse Lives In: Home Occupation: employed Review of Systems All Other Systems at this time: Reviewed and Negative Physical Exam Vital Signs: Temperature: 98.4, Source: Temporal, Heart Rate: 107, Respiratory Rate: 24, BP: 164/102, Pulse Oximetry: 97, Weight: 70.000 Oxygen Flow Rate: 0 General Appearance: alert, no apparent distress Respiratory B/L decreased air entry, diffuse wheezing present, no use of accessory muscles of respiration Cardiovascular: regular rate, rhythm Cardiovascular s1, s2 present, no edema Gastrointestinal: normal palpation, non-tender, bowels sounds present Skin: normal color, warm/dry Progress Progress Note 64 year old female with COPD, hypothyroidism, came to the ER with chief c/o sob for 10 days. Patient stated almost a month ago, she was diagnosed with RSV, and was prescribed antibiotocs and prednisone for 5 days. Her symptoms were resolved, and she was feeling better. For the past 10 days, with worsening of fog, she experienced worsening of cough with increased sputum, and worsening sob, a/w orthopnea. denies fever, pedal edema. she is using inhalers q2h, but the symtpoms were not getting better. she ran out of her nebulizer and is not using it at home DD includes COPD exacernation, heart failure, pneumonia Plan- CBC, CMP, Pro BNP, CXR PA, EKG, RSV, COVID AND FLU testing Rx -albuterol neb, prednisone 60mg po, and azithro 500 mg po once 1030 am- cbc- eosinophlia bmp- normal pro BNP- normal Results/Orders Results/Orders Medications Received in ER Medications (Trade) Dose Ordered Sig/[place] Route PRN Reason Start Time Stop Time Status Last Admin Dose Admin (Proventil 2.5 MG/3ML nebule) 2.5 mg ONCE ONCE NEB 07/20/25 10:00 07/20/25 10:02 DC 07/20/25 10:48 2.5 MG (Proventil 2.5 MG/3ML nebule) 5 mg Q1H ONCE CONTNEB 07/20/25 10:10 07/20/25 10:15 DC 07/20/25 10:49 5 MG (predniSONE tablet) 60 mg ONCE ONCE PO 07/20/25 10:10 07/20/25 10:15 DC 07/20/25 10:21 60 MG (Zithromax tablet) 500 mg ONCE ONCE PO 07/20/25 10:20 07/20/25 10:23 DC 07/20/25 10:46 500 MG Vital Signs 07/20/25 07/20/25 07/20/25 07/20/25 09:19 10:53 11:36 12:13 Temp 98.4 Pulse 107 82 93 110 Resp 24 22 18 18 B/P (MAP) 164/102 Pulse Ox 97 95 94 95 O2 Flow Rate 0 07/20/25 07/20/25 12:27 12:28 Pulse 103 Resp 19 20 B/P (MAP) 141/80 (100) Pulse Ox 92 O2 Flow Rate 0 Laboratory Tests Test 07/20/25 09:33 07/20/25 10:25 07/20/25 11:26 07/20/25 12:03 White Blood Count 8.6 Red Blood Count 4.89 Hemoglobin 14.5 Hematocrit 43.0 Mean Corpuscular Volume 88.0 Mean Corpuscular Hemoglobin 29.7 Mean Corpuscular Hemoglobin Concent 33.8 Red Cell Distribution Width 13.3 Platelet Count 363 Mean Platelet Volume 7.2 L Neutrophils (%) (Auto) 51.7 Lymphocytes (%) (Auto) 32.0 Monocytes (%) (Auto) 8.0 Eosinophils (%) (Auto) 7.4 H Basophils (%) (Auto) 0.9 Neutrophils # (Auto) 4.4 Lymphocytes # (Auto) 2.7 Monocytes # (Auto) 0.7 Eosinophils # (Auto) 0.6 Basophils # (Auto) 0.1 CBC Comment Sodium Level 136 Potassium Level 4.4 Chloride Level 104 Carbon Dioxide Level 25.0 Anion Gap 7 L Blood Urea Nitrogen 12 Creatinine 0.81 Estimated GFR/1.73 m2 72 BUN/Creatinine Ratio 14.8 Glucose Level 111 H Calcium Level 9.5 Troponin I High Sensitivity 6 6 5 Pro-B-Type Natriuretic Peptide 101 Albumin 3.8 Chemistry Comments Influenza Type A Antigen Negative Influenza Type B Antigen Negative SARS-CoV-2 Antigen (Rapid) Negative Troponin I High Sens Percent Delta 0 16 Troponin I Hi Sens Absolute Change 0 -1 Medical Decision Making Additional information obtaine: old records, N/A Findings COpD Heart Score: 3 Differential Dx:Considerations: Include: asthma, CHF, COPD, panic attack, respiratory distress Departure Disposition: HOME / SELF CARE / HOMELESS Impression: Primary Impression: Acute exacerbation of chronic obstructive airways disease Additional Impression Text Counseled about smoking cessation for about 7 minutes Azithromycin 250 mg for 5 days, Orally Prednisone 20 mg for 5 days, Twice daily Abulterol nebulization Q6H prn Follow up with Pcp In case of worsening SOB or any other symptoms call 911 or go to Ed immediately. Condition: Improved Discharge Instructions: Chronic Obstructive Pulmonary Disease Referrals: NO PRIMARY CARE PROVIDER (PCP) Prescriptions Albuterol Sulfate Nebs* (Proventil Nebs*) 2.5 Mg/0.5 Ml Vial.neb 1 VIAL NEB Q6H for shortness of breath for 30 Days, #60 ML Prov: JAYLIN RODRIGUEZ MD 07/20/25 Azithromycin (Azithromycin) 250 Mg Tablet 1 TAB PO UD for 5 Days, #6 TAB 2 the first day followed by 1 for days 2-5 Prov: JAYLIN RODRIGUEZ MD 07/20/25 Prednisone* (Prednisone*) 20 Mg Tablet 2 TAB PO DAILY, #10 TAB Prov: JAYLIN RODRIGUEZ MD 07/20/25 Signature Scribe Signature: No Scribe Attestation: Resident attestation The above note has been reviewed and supervised by a senior resident PGY2/PGY3 Patient was seen, examined and discussed with the attending physician Funmi Sesay MD Internal Medicine Resident, PGY 1 DUSTY BERKOWITZ, RES Jul 20, 2025 10:08 JAYLIN RODRIGUEZ MD Jul 20, 2025 12:34 JENNIFER SESAY, RES Jul 20, 2025 12:42
[2025-07-20] MEDS: albuterol 2.5 MG/3 ML nebule NEB ONE (10:48)
[2025-07-20] MEDS: albuterol 2.5 MG/3 ML nebule CONTNEB ONE (10:49)
[2025-07-20 10:53] VITALS: PULSE 82; RESP 22; O2SAT 95
[2025-07-20 10:59] LABS: INFLUENZA TYPE A ANTIGEN RAPID NEGATIVE (Negative); INFLUENZA TYPE B ANTIGEN RAPID NEGATIVE (Negative)
[2025-07-20 11:36] VITALS: PULSE 93; RESP 18; O2SAT 94
[2025-07-20 12:13] VITALS: PULSE 110; RESP 18; O2SAT 95
[2025-07-20 12:27] VITALS: BP 141/80; PULSE 103; O2SAT 92
[2025-07-20 12:28] VITALS: RESP 20
[2025-07-20] MEDS ORDERED: PRED20TA PO (12:34)
[2025-07-20] MEDS ORDERED: AZIT250T82 PO (12:34)
[2025-07-20] MEDS ORDERED: ALB0.5UD NEB (12:34)
[2025-07-20 12:57] VITALS: TEMP 98.4
== END 2025-07-20 12:57 | disposition home or self-care (01) ==
LOC: ER 09:18
DX: J44.1 Chronic obstructive pulmonary disease with (acute) exacerbation (principal); G89.29 Other chronic pain; E03.9 Hypothyroidism, unspecified; F17.200 Nicotine dependence, unspecified, uncomplicated; Z79.52 Long term (current) use of systemic steroids; Z91.030 Bee allergy status; Z88.5 Allergy status to narcotic agent; Z79.899 Other long term (current) drug therapy; Z20.822 Contact with and (suspected) exposure to COVID-19
CPT/HCPCS: 36415; 71045; 80048; 83880; 84484; 85025; 87804; 87811; 93005; 94644; 99285; J7512; 94640; 94760; A7015